=== PATIENT | female | born 1990 | race Caucasian/White ===

== ENCOUNTER 2023-09-08 11:05 | Emergency (ER) | payer OTHER, SELFPAY ==
--- NOTE | ~2023-09-08 | US_ITS ---
EXAMINATION: US OBSTETRICAL ULTRASOUND CLINICAL INFORMATION: Medical in July 2023 now with heavy bleeding and question of retained products of conception TECHNIQUE: Both transabdominal and endovaginal scanning was performed. Color-flow Doppler imaging was utilized. FINDINGS: An anteverted uterus is present measuring 10.3 x 3.3 x 5.6 cm is present. The uterus appears normal. No fluid or retained products are seen in the endometrial canal. The endometrium appears normal at 7 mm in thickness. The right ovary measures 3.0 x 1.8 x 1.5 cm for a volume of 4.2 mL and appears normal. Left ovary measures 5.6 x 3.1 x 6.0 cm for a volume of 55 mL which includes a 4.9 x 2.6 x 5.2 cm benign-appearing simple ovarian cyst. No free intraperitoneal fluid. US/US OB pelvic and transvaginal IMPRESSION: Normal-appearing uterus. No retained products of conception. 6 cm simple appearing left ovarian cyst meets size criteria for follow-up ultrasound in 3-6 months.
[2023-09-08 11:26] VITALS: BP 113/48; PULSE 79; RESP 18; TEMP 36.6; O2SAT 98; BMI 18.9
--- NOTE | 2023-09-08 11:26 | ED.GENADULT ---
HPI - General Adult General Chief complaint: Vaginal Bleeding Stated complaint: Flu symptoms Time Seen by Provider: 09/08/23 16:46 Source: patient, RN notes reviewed and old records reviewed Mode of arrival: ambulatory History of Present Illness HPI narrative: 33-year-old female presents for evaluation of vaginal bleeding. Patient reports that she had an elective on 08/13/2023. She reports that she was only given medications did not have any D and C Patient states that she had some bleeding for a couple of weeks post which resolved Patient states that last night into today she had heavy vaginal bleeding She denies any abdominal or pelvic pain Denies any burning with urination She is concerned that there may be retained products of conception Patient denies any fevers or chills Related Data Previous Rx's ?Medication ?Instructions ?Recorded cefuroxime axetil 250 mg tablet 250 mg PO Q12H #10 tabs 09/08/23 Allergies Allergy/AdvReac Type Severity Reaction Status Date / Time sulfamethoxazole Allergy Rash Verified 09/08/23 11:29 [From Bactrim] trimethoprim [From Bactrim] Allergy Rash Verified 09/08/23 11:29 Review of Systems Constitutional: Constitutional: Reports body ache(s), Denies chills, Denies fever(s), Reports malaise and Reports weakness Eyes: Eyes: Denies blurry vision ENT: Denies sore throat Cardiovascular: Cardiovascular: Denies chest pain and Denies dyspnea Respiratory: Respiratory: Denies cough and Denies dyspnea Gastrointestinal: Gastrointestinal: Denies abdominal pain, Denies nausea and Denies vomiting Genitourinary: Comments: Reports heavy vaginal bleeding Musculoskeletal: Musculoskeletal: Denies back pain Integumentary/Breasts: Skin/Breast: Denies rash Neurologic: Reports weakness PMFSH Social History Social History Advance Directives: No Advance Directives Information Provided: No Physical Exam ED Vital Signs: Vital Signs - 24 hr 09/08/23 11:26 Temperature 98 F Pulse Rate 79 Respiratory Rate 18 Blood Pressure 113/48 L Pulse Oximetry 98 Oxygen Delivery Method Room Air BMI result Body Mass Index 18.9 Const General: healthy appearing, comfortable, no acute distress, alert and awake Nutritional Appearance: well nourished Orientation/consciousness: patient oriented x3 HENMT Head: Yes normocephalic and Yes atraumatic Eyes Eyelids: Yes eyelids normal Conjunctivae: conjunctivae normal Sclerae: sclerae normal Corneas: corneas normal Pupils: Equal, round and reactive pupils present EOM: EOMs intact bilaterally Neck Neck: Yes full ROM Resp Effort & Inspection: normal respiratory effort, able to speak in complete sentences and not labored Cardio Rate: regular rate Rhythm: regular rhythm GI Inspection: No distended Palpation (GI): Soft to palpation, not firm, nontender, no guarding and not rigid Skin General skin exam: elasticity normal Neuro General: patient oriented x3 Cranial nerves: Yes Equal, round and reactive pupils present and Yes Bilaterally intact EOM present Cognition (Neuro): normal cognition Extrem Other: Moving all extremities well without any obvious deformities Course Course Course Narrative: This is a Rapid Medical Examination (RME) in triage, full HPI, ROS, assessment and plan per primary provider in the Main ED. 33 yo female presenting for flu-like symptoms - achiness, headache, cold/sweats that started yesterday. [facility] - bled for 2 weeks and it stopped. Woke up this morning covered in blood, worried about retained products. No abdominal pain but has foul smelling vaginal discharge x1 week. Plan: labs, flu swab. if beta HCG elevated will need pelvic U/S Medical Decision Making Medical Decision Making [facility] Narrative: 33-year-old female presents for evaluation of vaginal bleeding. She had an elective with medication only 3 weeks ago. Her pelvic ultrasound shows no evidence of retained products of conception. No evidence of pelvic mass. Patient has mild normocytic anemia which is likely related to her heavy vaginal bleeding on and off over the last 3 weeks. I have low suspicion for pelvic abscess or infectious processes the patient is not tender on exam. She also does not complain of any abdominal or pelvic pain. She does however have a UTI, will treat with cefuroxime b.i.d. x5 days. Her symptoms may be related to restarting her menstrual cycle Differential Diagnosis Differential Diagnoses: The differential diagnosis associated with the presentation includes Dysfunctional uterine bleeding Dysmenorrhea UTI Pelvic abscess less likely Retained products of conception Lab Data [facility] Lab Attestation statement: I reviewed the patient's lab results. Leukocytosis to 13.9 K. Mild anemia as described above. This is normocytic. No platelet abnormality. Electrolytes within normal limits. Renal function within normal limits. Random glucose is slightly elevated, however this is likely related to the fact that it was not a fasting glucose. Patient's serum hCG was 15 which is likely continuing to trend downwards post 09/08/23 12:22 09/08/23 12:22 Labs: Lab Results 09/08/23 09/08/23 09/08/23 Range/Units 12:18 12:20 12:22 WBC 13.9 H (4.8-10.8) X10*3/uL RBC 3.78 L (4.20-5.50) X10*6/uL Hgb 11.4 L (12.0-16.0) g/dl Hct 32.7 L (37.0-47.0) % MCV 86.5 (80.0-98.0) fL MCH 30.2 (27.0-33.0) pg MCHC 34.9 (31.0-35.0) g/dl RDW 12.8 (11.0-16.0) % Plt Count 185 (160-400) X10*3/uL MPV 9.4 (9.4-12.3) fL Immature Gran % (Auto) 0.5 H (0.0-0.4) % Neut % (Auto) 84.4 H (45-73) % Lymph % (Auto) 8.1 L (20-40) % Kingfisher % (Auto) 6.6 (2-11) % Eos % (Auto) 0.0 (0-4) % Baso % (Auto) 0.4 (0-2) % Lymph # (Auto) 1.1 L (1.2-4.9) X10*3/uL Kingfisher # (Auto) 0.9 (0.1-1.2) X10*3/uL Eos # (Auto) 0.0 (0.0-0.4) X10*3/uL Baso # (Auto) 0.1 (0.0-0.2) X10*3/uL Abs Immat Gran (auto) 0.07 H (0.00-0.03) X10*3/uL Absolute Neuts (auto) 11.7 H (2.0-8.3) x10*3/uL Absolute Nucleated RBC 0.000 (0.0-0.012) X10*3/uL Nucleated RBC % (auto) 0.0 (0.0-0.2) /100WBC Sodium 137 (135-145) mmol/L Potassium 3.7 (3.3-5.1) mmol/L Chloride 106 (96-108) mmol/L Carbon Dioxide 25 (22-29) mmol/L Anion Gap 10 L (12-20) BUN 7 L (9-16) mg/dL Creatinine 0.78 (0.5-1.4) mg/dL Estim Creat Clear Calc 74.1 Estimated GFR > 60 Random Glucose 122 H (60-115) mg/dL Calcium 9.4 (8.4-10.2) mg/dL Magnesium 2.0 (1.6-2.6) mg/dL Total Bilirubin 0.6 (0.0-1.0) mg/dL Direct Bilirubin 0.2 (0.0-0.5) mg/dL AST 14 (5-31) U/L ALT 12 (0-31) U/L Alkaline Phosphatase 70 (39-117) U/L Total Protein 7.1 (6.5-8.0) g/dL Albumin 4.1 (3.5-5.0) g/dL Beta HCG, Quant 15 mIU/mL Urine Color Yellow Urine Appearance Cloudy Urine pH 6.0 (5.0-9.0) Ur Specific Frostproof <= 1.005 (1.005-1.025) Urine Protein Trace (Neg-Trace) mg/dL Urine Glucose (UA) Negative (Negative) mg/dL Urine Ketones Trace (Negative) mg/dL Urine Blood Large (3+) H (Negative) Urine Nitrite Positive H (Negative) Ur Leukocyte Esterase Small (1+) H (Negative) Urine RBC >20 H (0-2) /HPF Urine WBC 11-20 H (0-5) /HPF Ur Squamous Epith Cells 6-10 (0-2) /HPF Urine Bacteria 4+ (None Seen) Hyaline Casts 0-2 (0-2) /LPF COVID-19 (LETICIA) Negative (Negative) COVID-19 Clin Com See Note Influenza Type A (CARLOS ENRIQUE) Negative (Negative) Influenza Type B (CARLOS ENRIQUE) Negative (Negative) Influenza A & B Note See Note Independent Interpretation I performed an independent interpretation of an: Ultrasound Interpretation: IMPRESSION: Normal-appearing uterus. No retained products of conception. 6 cm simple appearing left ovarian cyst meets size criteria for follow-up ultrasound in 3-6 months. Discharge Plan Discharge Clinical Impression: Dysfunctional uterine bleeding, UTI (urinary tract infection) Patient Disposition: Home, Self-Care Instructions: Dysfunctional Uterine Bleeding (ED), Urinary Tract Infection in Women (ED) Additional Instructions: Take cefuroxime twice daily for the next 5 days to treat UTI Your workup in the ER today was reassuring Other than the UTI, the remainder of your workup was reassuring Your ultrasound did not show any pelvic masses or retained products of conception [facility] primary [facility] Return for new or worsening symptoms Prescriptions: New cefuroxime axetil 250 mg tablet 250 mg PO Q12H Qty: 10 0RF Stand Alone Forms: Work/School Release Print Language: Monegasque
[2023-09-08 12:27] LABS: MANUAL DIFF FLAG NO
[2023-09-08 12:29] LABS: Basophils Absolute Auto 0.1 X10*3/uL (0.0-0.2); Basophils Percent Auto 0.4 % (0-2); Hematocrit 32.7 % (37.0-47.0); Hemoglobin 11.4 g/dl (12.0-16.0); Imm Gran Abs Auto 0.07 X10*3/uL (0.00-0.03); Imm Gran Pct Auto 0.5 % (0.0-0.4); Lymphocytes Absolute Auto 1.1 X10*3/uL (1.2-4.9); Lymphocytes Percent Auto 8.1 % (20-40); Mean Corpuscular HGB Conc 34.9 g/dl (31.0-35.0); Mean Corpuscular Hemoglobin 30.2 pg (27.0-33.0); Mean Corpuscular Volume 86.5 fL (80.0-98.0); Mean Platelet Volume 9.4 fL (9.4-12.3); Monocytes Absolute Auto 0.9 X10*3/uL (0.1-1.2); Monocytes Percent Auto 6.6 % (2-11); Neutrophils Absolute Auto 11.7 x10*3/uL (2.0-8.3); Neutrophils Percent Auto 84.4 % (45-73); Platelet Count 185 X10*3/uL (160-400); Red Blood Count 3.78 X10*6/uL (4.20-5.50); Red Cell Distribution Width 12.8 % (11.0-16.0); White Blood Count 13.9 X10*3/uL (4.8-10.8)
[2023-09-08 12:34] LABS: Appearance Urine Cloudy; Color Urine Yellow; Glucose Urine UA Negative (Negative); Leukocyte Esterase Urine Small (1+) (Negative); Nitrite Urine Positive (Negative); Specific Gravity - Urine <= 1.005 (1.005-1.025); UMIC TRIGGER UACC YES; Urine Blood Large (3+) (Negative); Urine Ketones Trace mg/dL (Negative); Urine Protein Trace mg/dL (Neg-Trace)
[2023-09-08 12:40] LABS: Bacteria Urine 4+ (None Seen); Hyaline Casts Urine 0-2 /LPF (0-2); RBC Urine >20 /HPF (0-2); UACC Culture Trigger YES
[2023-09-08 12:41] LABS: IDNOW Serial# 08D9AD1C
[2023-09-08 12:42] LABS: COVID-19 Test Negative (Negative)
[2023-09-08 12:47] LABS: IDNOW Serial# 152EDE1D; Influenza A Negative (Negative); Influenza B2 Negative (Negative)
[2023-09-08 13:09] LABS: Alanine Aminotransferase 12 U/L (0-31); Albumin Level 4.1 g/dL (3.5-5.0); Alkaline Phosphatase 70 U/L (39-117); Anion Gap 10 (12-20); Aspartate Amino Transferase 14 U/L (5-31); Bilirubin Direct 0.2 mg/dL (0.0-0.5); Bilirubin Total 0.6 mg/dL (0.0-1.0); Blood Urea Nitrogen 7 mg/dL (9-16); Calcium 9.4 mg/dL (8.4-10.2); Carbon Dioxide 25 mmol/L (22-29); Chloride 106 mmol/L (96-108); Creatinine Clr Calc Pharmacy 74.1; Estimated Glomerular Filt Rate > 60; Glucose Random 122 mg/dL (60-115); HCG Quantitative 15 mIU/mL; Potassium 3.7 mmol/L (3.3-5.1); Sodium 137 mmol/L (135-145); Total Protein 7.1 g/dL (6.5-8.0)
== END 2023-09-08 17:17 | disposition home or self-care (01) ==
PROVIDERS: Physician Assistant; Emergency Provider Internal Medicine
DX: N39.0 Urinary tract infection, site not specified (principal); N83.202 Unspecified ovarian cyst, left side; N93.8 Other specified abnormal uterine and vaginal bleeding; Z11.52 Encounter for screening for COVID-19; Z79.899 Other long term (current) drug therapy
CPT/HCPCS: 76801; 76817; 80048; 80076; 81001; 83735; 84702; 85025; 87086; 87088; 87186; 87502; 87635; 99282; 99284